=== PATIENT | female | born 1935 | race Asian ===

== ENCOUNTER 2016-10-30 11:41 | Emergency (ER) | payer MEDICARE, OTHER ==
[~2016-10-30] VITALS: Ht 170.2 cm; Wt 57.7 kg
[~2016-10-30 11:41] MED LIST: AMBIEN 10MG10 MG PO; AMBIEN 5MG TABLE5 MG PO; AQUAPHOR1 OI1 TP; ASPI325T6 PO; ASPIRIN 32325 MG/TAB PO; ASPIRIN 81M81 MG/TA2 PO; ASPIRIN E.C. 8181 MG PO; ATIVAN 0.50.5 MG/TAB PO; ATIVAN 1MG T1 MG/TAB PO; AVINZA30 M1 PO; BENADRYL25 M2 PO; CALCIUM 600600 MG PO; CEFTIN500 MG PO; CELEBREX 200MG200 MG PO; COLACE 100100 MG/CAP PO; COREG 6.256.25 MG/TA PO; COUMADIN 1MG1 MG/TAB PO; COUMADIN 2MG2 MG/TAB PO; COZAAR 50MG50 MG/TAB PO; DESYREL 50MG50 MG PO; DULCOLAX S10 MG/SUPP RC; EFFEXOR-XR150 MG PO; FENTANYL 25 MCG TOP; FEROSUL325 MG PO; FERROUS SU325 MG/TAB PO; FOLIC ACID 11 MG/TA1 PO; GLUCOTROL 5M5 MG/TAB PO; IFEREX 150150 MG PO; IMDUR 60MG60 MG/TAB PO; IPRATROPIUM BROM3 M1 IH; KLONOPIN 1MG1 MG PO; KLOR-CON M2020 MEQ PO; LANTUS100 U/ML SC; LANTUS100 U/ML SQ; LASIX 20MG TABL20 MG PO; LEXAPRO 10MG10 MG PO; LIDEX TP; LIPITOR20 MG PO; LOPRESSOR 225 MG/TAB PO; MAALOX 225 MG/150 ML PO; MAALOX ADVANCE355 ML PO; MAALOX EXTRA S150 ML PO; MILK OF MA400 MG/5 M PO; MILK OF MA400 MG/52 PO; MILK OF MAGNESI30 ML PO; MIRALAX PA17 GM/Dose PO; MS CONTIN 115 MG/TAB PO; MS CONTIN 330 MG/TAB PO; MULTIPLE VITAMI1 CAP PO; MYLANTA 150 ML150 M1 PO; NITROQUICK0.4 MG SL; NITROSTAT0.4 MG/TAB SL; NORCO 325 MG-51 TAB PO; NORCO 325 MG-7.1 TAB PO; NOVLOG SQ; NOVOLOG 100U100 U/M1 SC; PAXIL 20MG20 MG PO; PEPCID 20MG TAB20 MG PO; PERCOCET 325 MG1 TA2 PO; PERCR 7.5 PO; PLAVIX 75MG TAB75 MG PO; PREDNISONE10 MG PO; PREDNISONE20 MG PO; PRILOSEC 20MG20 MG PO; PROMETHAZINE12.5 M5 PO; REMERON 15M15 MG/TA1 PO; ROCEPHIN2 GM/50 ML IV; ROXICODONE 55 MG/TAB PO; SALONPAS TD; SENNA LAX8.6 MG PO; SENOKOT S 50 MG1 TAB PO; SEROQUEL 2525 MG/TAB PO; SEROQUEL50 MG PO; TAB-A-VITE1 TA3 PO; TEFLARO 60600 MG/VIA IV; TENORMIN 2525 MG/TAB PO; THERAGRAN1 TAB PO; TYLENOL 325MG325 MG PO; TYLENOL PM EXTR1 TA1 PO; ULTRAM 50MG TAB50 MG PO; UNABLE; VITAMIN C PURE500 M1 PO; VITAMIN C500 MG PO; VITAMIN D32000 IU PO; ZITHROMAX 250M250 MG PO; ZOFRAN 4MG T4 MG/TAB PO; ZOFRAN ODT4 MG PO; ZYPREXA 5MG5 MG PO; ZYRTEC 10MG10 MG PO
[2016-10-30 11:42] VITALS: BP 125/62; PULSE 66; TEMP 97.2
== END 2016-10-30 12:48 | disposition home or self-care (01) ==
LOC: COL.ER 11:41
DX: S00.03XA Contusion of scalp, initial encounter (principal); S61.411A Laceration without foreign body of right hand, initial encounter; W19.XXXA Unspecified fall, initial encounter

== ENCOUNTER → 2016-11-04 | Outpatient (CLI) | payer MEDICARE, OTHER | LOC: COL.LAB 14:03 | DX: Z53.9 Procedure and treatment not carried out, unspecified reason (principal) ==

== ENCOUNTER 2018-08-31 02:02 | Emergency (ER) | payer MEDICARE, OTHER ==
[~2018-08-31] VITALS: Ht 152.4 cm; Wt 54.5 kg
[2018-08-31 02:06] VITALS: BP 141/65; TEMP 97.9
[2018-08-31] MEDS ORDERED: AMOXICILLIN 8751 TAB PO (02:27)
[2018-08-31 03:10] VITALS: PULSE 52
== END 2018-08-31 03:10 | disposition home or self-care (01) ==
LOC: COL.ER 02:02
DX: S61.452A Open bite of left hand, initial encounter (principal); W50.3XXA Accidental bite by another person, initial encounter; Z79.82 Long term (current) use of aspirin; Z79.02 Long term (current) use of antithrombotics/antiplatelets

== ENCOUNTER 2018-11-25 20:02 | Emergency (ER) | payer MEDICARE, OTHER ==
[~2018-11-25] VITALS: Ht 154.9 cm; Wt 49.1 kg
[~2018-11-25 20:02] MED LIST changes: +AMOXICILLIN 8751 TAB PO
[2018-11-25 20:05] VITALS: TEMP 98.8
[2018-11-25 21:00] LABS: COLLECTION METHOD CATHETER
[2018-11-25 21:14] LABS: BASO # 0.1 (0.0-0.2); BASO % 1.1 % (0.0-2.0); EOS # 0.3 (0.0-0.7); GRAN # 3.5 (1.4-6.5); GRAN % 54.6 % (42.2-75.2); HEMATOCRIT 37.8 % (37.0-47.0); HEMOGLOBIN 12.4 g/dl (12.5-16.0); LYMPH % 31.9 % (20.0-51.0); MEAN CELL VOLUME 96 fl (80.0-100.0); MEAN CORPUSCULAR HEMOGLOBIN 32 pg (27.0-31.0); MEAN CORPUSCULAR HGB CONC 33 g/dl (33.0-37.0); MEAN PLATELET VOLUME 10.9 fl (7.4-10.4); MONO # 0.5 (0.1-0.6); MONO % 7.1 % (1.7-9.3); PLATELET COUNT 147 K/mm3 (130-400); RED BLOOD COUNT 3.94 M/mm3 (4.10-5.30); REDCELL DISTRIBUTION WIDTH-CV 12.9 % (11.5-14.5)
[2018-11-25 21:16] LABS: ALANINE AMINOTRANSFERASE 9 U/L (9-52); ALBUMIN 3.6 gm/dL (3.5-5.0); ALKALINE PHOSPHATASE 126 U/L (50-136); ANION GAP 7 mmol/L (7-16); AST,SGOT 19 U/L (15-37); BILIRUBIN,TOTAL 0.2 mg/dL (0.0-1.0); BLOOD UREA NITROGEN 16 mg/dL (7-17); CALCIUM 8.3 mg/dL (8.4-10.2); CARBON DIOXIDE 25 mmol/L (22-30); CHLORIDE 107 mmol/L (98-107); CREATININE, serum 1.55 mg/dL (0.52-1.25); GLUCOSE 96 mg/dL (74-106); POTASSIUM 4.2 mmol/L (3.4-5.0); SODIUM 138 mmol/L (137-145); TOTAL PROTEIN 6.9 gm/dL (6.4-8.2)
[2018-11-25 21:17] LABS: PH 5 (5-8); SQUAMOUS EPITHELIAL None Seen /hpf; URINE APPEARANCE Clear; URINE BACTERIA Rare /hpf; URINE BILIRUBIN Negative (NEGATIVE); URINE BLOOD Negative (NEGATIVE); URINE COLOR Yellow; URINE GLUCOSE Negative (NEGATIVE); URINE KETONE Negative (NEGATIVE); URINE LEUKOCYTE ESTERASE Negative (NEGATIVE); URINE NITRATE Negative (NEGATIVE); URINE PROTEIN(semi-quant) Negative (NEGATIVE); URINE RBC 0-2 /hpf; URINE UROBILINOGEN Negative (NEGATIVE)
[2018-11-25 21:30] LABS: TROPONIN-I < 0.012 ng/mL (0.000-0.035)
[2018-11-26 00:44] VITALS: BP 130/71; PULSE 64
== END 2018-11-26 00:49 | disposition short-term general hospital (02) ==
LOC: COL.ER 20:02
PROVIDERS: Physician Assistant
DX: S06.6X9A Traumatic subarachnoid hemorrhage with loss of consciousness of unspecified duration, initial encounter (principal); I25.10 Atherosclerotic heart disease of native coronary artery without angina pectoris; K21.9 Gastro-esophageal reflux disease without esophagitis; J44.9 Chronic obstructive pulmonary disease, unspecified; E11.51 Type 2 diabetes mellitus with diabetic peripheral angiopathy without gangrene; I10 Essential (primary) hypertension; F17.210 Nicotine dependence, cigarettes, uncomplicated; Z79.02 Long term (current) use of antithrombotics/antiplatelets; Z95.1 Presence of aortocoronary bypass graft; W19.XXXA Unspecified fall, initial encounter; Y92.009 Unspecified place in unspecified non-institutional (private) residence as the place of occurrence of the external cause
CPT/HCPCS: J1953; J7040; Q9967